=== PATIENT | female | born 1955 | race Two or more races ===

== ENCOUNTER 2023-04-14 16:10 | Inpatient (IN) | payer BC, MEDICARE, SELFPAY ==
[2023-04-14] VITALS (28 sets, daily range): BP systolic 117–150; BP diastolic 54–79; PULSE 63–85; RESP 15–27; TEMP 36.4; O2SAT 95–100
--- NOTE | ~2023-04-14 | CT_ITS ---
EXAMINATION: CT abdomen pelvis w con DATE: 04/14/2023 19:01 INDICATION: Pancreatitis TECHNIQUE: Computed tomography (CT) of the abdomen and pelvis was performed with 100 mL Omnipaque-350 intravenous contrast. Automated exposure control and iterative reconstruction technique were employe d. The dose-length product was 772.81 mGy-cm. COMPARISON: None FINDINGS: Mild dependent atelectasis in the bilateral lower lobes. Heart size is normal. Atherosclerotic burns ry artery calcific lesion. No pericardial or pleural effusion. Mild intra and extra hepatic biliary d uctal dilation which is within normal limits post cholecystectomy with surgical clips the gallbladder fossa. There does however appear to be possible filling defect within the distal common bile duct. L iver is otherwise unremarkable. Spleen, pancreas, left kidney and bilateral adrenal glands are normal . 1.7 cm exophytic lesion at the upper pole of the right kidney with slightly greater than simple flu id attenuation. There is prominent colonic diverticulosis with a sigmoid and descending colon predomi nance but without adjacent inflammatory change to suggest diverticulitis. Small bowel and appendix a re normal. Bladder, uterus and bilateral adnexa are unremarkable. No free intraperitoneal gas or flui d. No pathologically enlarged abdominal or pelvic lymphadenopathy. Mild lumbar spondylosis with sever e lower lumbar facet osteoarthritis. IMPRESSION: 1. Mild intra and extra hepatic biliary ductal dilation which is within normal limits post cholecyste ctomy but with suggestion of possible filling defect in the distal duct. Correlate with liver functio n tests and consider MRCP for further evaluation. 2. 1.7 cm indeterminate exophytic right renal lesion most likely proteinaceous/hemorrhagic cyst altho ugh could not absolutely exclude a solid neoplasm. Recommend further evaluation with pre and postcont rast MRI or CT, the former which could be obtained at the same time as the MRCP. Reviewed, dictated and finalized at location A. TY LIBRARY DIRECTOR IMPRESSION: 1. Mild intra and extra hepatic biliary ductal dilation which is within normal limits post cholecystectomy but with suggestion of possible filling defect in t he distal duct. Correlate with liver function tests and consider MRCP for furth er evaluation. 2. 1.7 cm indeterminate exophytic right renal lesion most likely proteinaceous/ hemorrhagic cyst although could not absolutely exclude a solid neoplasm. Recomm end further evaluation with pre and postcontrast MRI or CT, the former which co uld be obtained at the same time as the MRCP.
--- NOTE | ~2023-04-14 | XR_ITS ---
EXAMINATION: XR ERCP DATE: 04/15/2023 16:12 INDICATION: Gallstones TECHNIQUE: 5 fluoroscopic spot fluoroscopic images of the right upper quadrant were obtained during e ndoscopic retrograde cholangiopancreatography (ERCP) performed by Dr. Fabian. Radiologist was not pres ent for the imaging or procedure. The amount of fluoroscopy time used during this procedure was 2.7 m inutes. COMPARISON: None. FINDINGS: Images demonstrate endoscopic cannulation of the distal common bile duct with retrograde contrast inj ection filling the common bile duct and central intrahepatic biliary tree. Subsequent images demonstr ate a lucent likely balloon sweeping of the distal common bile duct. IMPRESSION: 1. Fluoroscopy utilized during ERCP with likely balloon sweeping for suspected stone seen on prior CT . Please refer to the ERCP procedure note for additional details. Reviewed, dictated and finalized at location A. TRICAL CHECKOUT MECHANIC IMPRESSION: 1. Fluoroscopy utilized during ERCP with likely balloon sweeping for suspected stone seen on prior CT. Please refer to the ERCP procedure note for additional details.
--- NOTE | ~2023-04-14 | CT_ITS ---
EXAMINATION: CT abdomen pelvis w con DATE: 04/19/2023 10:05 INDICATION: Pancreatitis. TECHNIQUE: Computed tomography (CT) of the abdomen and pelvis was performed with 100 cc Omnipaque 350 intravenous contrast. The dose-length product was 887.38 mGy-cm. Automated exposure control and iter ative reconstruction technique were employed. COMPARISON: CT dated 04/14/2023 FINDINGS: Interval development of small pleural effusions with dependent atelectasis. There is a 2.6 cm cyst along the right pericardium, likely pericardial cyst or duplication cyst. There is intrahepat ic biliary dilatation. Gallbladder is not definitely identified. There are are what appears to be sto sherri in the gallbladder fossa, possibly drop stones. There is a filling defect in the distal common bi le duct, suspicious for choledocholithiasis. Interval development of acute pancreatitis with moderate enlargement of the pancreas with surrounding fluid and inflammatory change. There is interval develo pment of ascites. Colonic diverticulosis without evidence for diverticulitis. Nonobstructive bowel ga s pattern. Fatty infiltration of the liver. Spleen is atrophic. The adrenal glands and kidneys are un remarkable. No free air. Stable indeterminate 1.7 cm exophytic right renal lesion. IMPRESSION: 1. Acute pancreatitis without evidence for abscess or pseudocyst formation. Possible choledocholithia sis. Possible drop stones in the gallbladder fossa. 2: New small pleural effusions with dependent atelectasis. 3: Stable indeterminate 1.7 cm exophytic right renal mass, most likely complicated cysts, although n eoplasm not excluded. Reviewed, dictated and finalized at location L. D EDUCATION DIRECTOR IMPRESSION: 1. Acute pancreatitis without evidence for abscess or pseudocyst formation. Pos sible choledocholithiasis. Possible drop stones in the gallbladder fossa. 2: New small pleural effusions with dependent atelectasis. 3: Stable indeterminate 1.7 cm exophytic right renal mass, most likely complic ated cysts, although neoplasm not excluded.
--- NOTE | ~2023-04-14 | XR_ITS ---
XR chest 2V DATE: 04/14/2023 17:40 INDICATION: Epigastric pain for 2 hours TECHNIQUE: PA and lateral chest COMPARISON: None FINDINGS: Multiple surgical clips, right upper quadrant, likely due to cholecystectomy. Normal heart size. No hilar or mediastinal enlargement. No pulmonary infiltrate or consolidation, pleural effusion or pulmonary vascular congestion or pneumo thorax. IMPRESSION: No active cardiac pulmonary disease Status post cholecystectomy Reviewed, dictated and finalized at location L. SPIRAL BINDER
--- NOTE | 2023-04-14 16:11 | ECG_ITS ---
Measurements Intervals [place] Rate: 70 P: 40 AL: 154 QRS: -18 QRSD: 105 T: 14 QT: 393 QTc: 426 Interpretive Statements SINUS RHYTHM DELAYED PRECORDIAL R/S TRANSITION BORDERLINE T WAVE ABNORMALITY- ANT/INF LEADS BASELINE ARTIFACT- I, II, III, AVR, V6 BORDERLINE ECG NO PREVIOUS ECG AVAILABLE FOR COMPARISON Electronically Signed On 04-14-2023 18:58:05 RESEARCH ANTHROPOLOGIST by Abhi Mackay D.O.
[2023-04-14 16:31] LABS: Basophils Absolute Auto 0.1 K/mm3 (0.0-0.1); Basophils Percent Auto 0.6 % (0.2-1.2); Eosinophils Absolute Auto 0.3 K/mm3 (0-0.3); Eosinophils Percent Auto 3.8 % (0-4.4); Immature Granulocyte Absolute 0.02 K/mm3 (0.00-0.031); Immature Granulocyte Percent A 0.2 % (0-0.5); Lymphocytes Absolute Auto 3.05 K/mm3 (0.9-3.2); Lymphocytes Percent Auto 34.5 % (18.3-44.2); Mean Corpuscular HGB Conc 31.7 g/dl (32-36); Mean Corpuscular Hemoglobin 28.3 pg (26-34); Mean Corpuscular Volume 89.3 fl (80-100); Mean Platelet Volume 9.1 fl (7.4-10.4); Monocytes Absolute Auto 0.9 K/mm3 (0.1-0.6); Monocytes Percent Auto 9.8 % (2.6-8.5); Neutrophils Absolute Auto 4.5 K/mm3 (1.3-6.7); Neutrophils Percent Auto 51.1 % (45.5-73.1); Platelet Count Result 321 k/mm3 (150-375); Red Blood Count 4.59 M/mm3 (4.2-5.4); Red Cell Distribution Width 14.5 % (11.5-14.5); White Blood Count 8.8 K/mm3 (4.5-10.0)
[2023-04-14 16:40] LABS: Alanine Aminotransferase 38 U/L (6-35); Albumin Level 4.7 g/dL (3.5-5.1); Alkaline Phosphatase 87 U/L (38-126); Anion Gap 14 mmol/L (8-16); Aspartate Amino Transferase 63 U/L (14-36); Bilirubin,Total 0.5 mg/dL (0.2-1.3); Blood Urea Nitrogen 15 mg/dL (7-17); Calcium 9.4 mg/dL (8.4-10.2); Carbon Dioxide 23 mmol/L (22-30); Chloride 99 mmol/L (98-107); Estimated CRCL calculation 54 ml/min; Estimated Glomerular Filt Rate > 60; Glucose 109 mg/dL (65-110); Lipase 1064 U/L (23-300); Sodium 136 mmol/L (137-145)
[2023-04-14 16:53] LABS: Troponin I < 0.012 ng/mL (0.000-0.034)
[2023-04-14 16:57] LABS: Prothrombin Time 13.6 Seconds (11.1-14.7)
[2023-04-14 16:58] LABS: Partial Thromboplastin Time 30.6 SECONDS (22.3-36.8)
[2023-04-14 18:35] LABS: Lactate Dehydrogenase 221 U/L (120-246)
[2023-04-14 19:43] LABS: Troponin I < 0.012 ng/mL (0.000-0.034)
[2023-04-14] MEDS: ONDANSETRON INJ 4 MG/2 ML VIAL IV PUSH (20:02)
[2023-04-14] MEDS: SODIUM CHLORIDE 0.9% IV 1,000 ML 999 ML IV CONT (20:03)
--- NOTE | 2023-04-14 20:06 | ED.CHESTPAIN ---
HPI - Chest Pain General Chief Complaint: Chest Pain Stated Complaint: Chest pain Time Seen by Provider: 04/14/23 17:59 History of Present Illness HPI narrative: Patient is a 67-year-old female who presents to the emergency department this evening complaining of mid epigastric pain radiating to her chest. Patient states that initially she felt chest pain which then replies to her midepigastric lesion. She admits to having a cholecystectomy over 20 years ago. Pain was initially sharp but patient states that it has somewhat improved since she 1st noticed it. Patient denies any shortness of breath, nausea, vomiting, dysuria, hematuria, constipation, diarrhea, melena, hematochezia, fevers or chills. Patient also denies any headaches, dizziness, lightheadedness, blurry visions, focal weakness, numbness and or tingling. There are no other modifying, alleviating, or precipitating factors at this time. Related Data Allergies Allergy/AdvReac Type Severity Reaction Status Date / Time No Known Allergies Allergy Verified 04/14/23 19:32 Review of Systems Review of Systems: All systems are reviewed and are negative unless stated otherwise in the HPI. Exam Narrative: General: Alert, awake, afebrile, in no acute distress. HEENT: PERRL, no rhinorrhea, no post nasal drip, oropharynx clear. Neck: Trachea midline, no JVD, no lymphadenopathy. Cardiovascular: Regular rate and rhythm, no murmurs, rubs or gallops, no peripheral edema. Respiratory: Clear to auscultation bilaterally, no tachypnea, no wheezing, no rhonchi, no rubs, no respiratory distress. Abdomen: Soft, tenderness palpation over the midepigastric region, nondistended, no rebound, no guarding, no peritoneal signs. Musculoskeletal: No joint swelling or deformity, normal muscle tone. Skin: No rashes or petechia, no signs of infection. Psychiatric: Alert and oriented, normal behavior and judgment for situation. Neurological: Alert and oriented to person, place, and time. Follows all commands. No focal deficits, speech is clear and fluent. Course Vital Signs Vital signs: Vital Signs Temperature 97.5 F L 04/14/23 16:17 Pulse Rate 75 04/14/23 16:17 Respiratory Rate 16 04/14/23 16:17 Blood Pressure 150/75 H 04/14/23 16:17 Pulse Oximetry 100 04/14/23 16:17 Oxygen Delivery Room Air 04/14/23 16:17 Temperature 97.5 F L 04/14/23 16:17 Pulse Rate 85 04/14/23 19:45 Respiratory Rate 19 04/14/23 19:45 Blood Pressure 131/63 04/14/23 18:50 Pulse Oximetry 100 04/14/23 19:45 Oxygen Delivery Room Air 04/14/23 17:59 MDM - Chest Pain MDM Narrative Medical decision making narrative: The patient was evaluated by myself in the emergency department. History is obtained from patient who is an independent historian and physical exam was performed. External medical records were reviewed at this time. IV was established and pertinent tests were ordered. Patient was administered 4 mg IV morphine for pain and 4 mg of IV Zofran for nausea. EKG was obtained which revealed sinus rhythm at a rate of 76 beats per minute. No ST changes, T wave inversions or evidence of acute ischemia. EKG was independently interpreted by me and is currently pending official cardiology read. Laboratory results obtained revealing an elevated lipase 3 times the upper limit of normal at 1064, elevated AST of 63, ALT of 38. At this time, CT abdomen and pelvis with IV contrast was obtained and revealed extra and intrahepatic biliary ductal dilation which is consistent with a post cholecystectomy state, however, there is a filling defect and recommendation for an MRCP. CT also revealed an incidental 1.7 right renal lesion recommending further evaluation with pre and postcontrast MRI or CT, the former which could be obtained at the same time as the MRCP. patient meets diagnostic criteria for acute pancreatitis given she has pain and an elevated lipase at this time she was started on IV
--- NOTE | 2023-04-14 20:09 | PC.NURSE ---
fluids and zofran administered but pt would like to wait on morphine until pain gets worse. no further orders at this time.
--- NOTE | 2023-04-14 20:09 | PM.IMHP ---
H&P: HPI History of Present Illness Date/Time: 04/14/23 20:09 Chief Complaint: Abdominal pain Narrative: This is a 67-year-old female with past medical history significant for type diabetes mellitus, status post remote cholecystectomy 20+ years ago. Patient presents to the emergency room due to right upper quadrant pain with radiation to the epigastrium 7/10 in intensity on a few hours of duration patient had been able to have her meals today she denies any nausea, vomiting, chills, rigors, diarrhea, constipation, dyspepsia, heartburn, no cough, no sputum production. Patient has been in her usual state of health up until this point. Preliminary workup was significant for a lipase over 1000 CT of abdomen and pelvis was reported as: XR chest 2V DATE: 04/14/2023 17:40 INDICATION: Epigastric pain for 2 hours? TECHNIQUE: PA and lateral chest? COMPARISON: None? FINDINGS: Multiple surgical clips, right upper quadrant, likely due to cholecystectomy. Normal heart size. No hilar or mediastinal enlargement. No pulmonary infiltrate or consolidation, pleural effusion or pulmonary vascular congestion or pneumothorax.? IMPRESSION: No active cardiac pulmonary disease Status post cholecystectomy? EXAMINATION: CT abdomen pelvis w con DATE: 04/14/2023 19:01 INDICATION: Pancreatitis TECHNIQUE: Computed tomography (CT) of the abdomen and pelvis was performed with 100 mL Omnipaque-350 intravenous contrast. Automated exposure control and iterative reconstruction technique were employed. The dose-length product was 772.81 mGy-cm. COMPARISON: None FINDINGS: Mild dependent atelectasis in the bilateral lower lobes. Heart size is normal. Atherosclerotic coronary artery calcific lesion. No pericardial or pleural effusion. Mild intra and extra hepatic biliary ductal dilation which is within normal limits post cholecystectomy with surgical clips the gallbladder fossa. There does however appear to be possible filling defect within the distal common bile duct. Liver is otherwise unremarkable. Spleen, pancreas, left kidney and bilateral adrenal glands are normal. 1.7 cm exophytic lesion at the upper pole of the right kidney with slightly greater than simple fluid attenuation. There is prominent colonic diverticulosis with a sigmoid and descending colon predominance but without adjacent inflammatory change to suggest diverticulitis.? Small bowel and appendix are normal. Bladder, uterus and bilateral adnexa are unremarkable. No free intraperitoneal gas or fluid. No pathologically enlarged abdominal or pelvic lymphadenopathy. Mild lumbar spondylosis with severe lower lumbar facet osteoarthritis. IMPRESSION: 1. Mild intra and extra hepatic biliary ductal dilation which is within normal limits post cholecystectomy but with suggestion of possible filling defect in the distal duct. Correlate with liver function tests and consider MRCP for further evaluation. 2. 1.7 cm indeterminate exophytic right renal lesion most likely proteinaceous/hemorrhagic cyst although could not absolutely exclude a solid neoplasm. Recommend further evaluation with pre and postcontrast MRI or CT, the former which could be obtained at the same time as the MRCP. Review of Systems Review of Systems: Right upper quadrant pain with radiation to the epigastric area Constitutional: Constitutional: Denies chills, Denies fever(s), Denies malaise and Denies night sweats Eyes: Eyes: Denies change in vision ENT: Denies dysphagia, Denies vertigo, Denies dizziness and Denies odynophagia Cardiovascular: Cardiovascular: Denies chest pain, Denies radiating jaw, neck or arm pain and Denies palpitations Respiratory: Respiratory: Denies cough, Denies excessive phlegm production and Denies dyspnea Gastrointestinal: Gastrointestinal: Reports abdominal pain, Denies melena, Denies hematochezia, Denies coffee ground emesis, Denies dyspepsia, Denies heartburn, Denies diarrhea, Denies nausea and Denies
[2023-04-14] MEDS: MORPHINE SULFATE (*CRX) 4 MG/ML INJ IV PUSH (20:47)
[2023-04-14] MEDS: SODIUM CHLORIDE 0.9% IV 1,000 ML 150 ML IV CONT (20:51)
--- NOTE | 2023-04-14 23:39 | ADMGEN ---
This patient, Gisela Bueno, was admitted to [facility] Surg Room 325-02. Patient/family oriented to hospital policies and general routines including ID bracelet, bed and alarms, visiting hours, pain management, procedures, bathroom and other care routines, personal items, smoking policy, room service/diet, and visiting hours. Information on how to activate the Rapid Response Team has been discussed. Patient/Family are encouraged to report perceived risks to care and to ask questions if they do not understand what they are told or what they should do.
[2023-04-15] VITALS (13 sets, daily range): BP systolic 98–149; BP diastolic 51–81; PULSE 47–66; RESP 13–25; TEMP 36.2–37.1; O2SAT 94–100
--- NOTE | 2023-04-15 06:59 | WPDGICN ---
Assessment and Plan Assessment and plan (1) Pancreatitis, acute: Code(s): K85.90 - Acute pancreatitis without necrosis or infection, unspecified Status: Acute (2) Common bile duct dilatation: Code(s): K83.8 - Other specified diseases of biliary tract Status: Acute Assessment and Plan: CT scan reveals dilated intra and extrahepatic ducts. This is not unusual for post cholecystectomy although there is also apparent filling defect in the distal common bile duct which would also explain her pancreatitis. (3) Transaminitis: Code(s): R74.01 - Elevation of levels of liver transaminase levels Status: Acute Assessment and Plan: AST is 68 ALT 38 Plan Will schedule for ERCP to be done today. I discussed with her the technique I sabino her a diagram. Showed her how stones conclude the pancreatic and bile duct. I discussed possible complications such as bleeding or perforation or the possible need for surgery to correct complication and also a risk of pancreatitis of about 3%. GI Consult Note Consult date/time: 04/15/23 06:59 HPI: Gisela Buneo is a 67 year old female who presents emergency room yesterday when she had developed acute severe sudden onset pain in the epigastric area yesterday afternoon. Persisted and was accompanied by nausea. It radiated across the upper abdomen and towards the the back on the right side. She denies having had fever chills. She has no prior history of liver disease or pancreatic disease but her lipase was found to be over 1000. Transaminases are slightly elevated. she had a cholecystectomy about 29 years ago with removal of many stones. CT scan was done which revealed: IMPRESSION: 1. Mild intra and extra hepatic biliary ductal dilation which is within normal limits post cholecystectomy but with suggestion of possible filling defect in the distal duct. Correlate with liver function tests and consider MRCP for further evaluation. 2. 1.7 cm indeterminate exophytic right renal lesion most likely proteinaceous/hemorrhagic cyst although could not absolutely exclude a solid neoplasm. Recommend further evaluation with pre and postcontrast MRI or CT, the former which could be obtained at the same time as the MRCP. Review of Systems Review of Systems: All systems reviewed & are unremarkable except as noted in HPI and below [facility] Social History Social History Smoking status: Never smoker Alcohol intake: current Drinks per week: 2 Substance use: never Lack of Transportation: No Lack of Food: Never True Current Housing: I Have Housing Concerned About Future Housing: No Difficulty Paying Gas/Electric Bills: No Difficulty Paying for Meds: No Currently Unemployed: No Education: Master's Degree or Higher Difficulty w/ Childcare or Family Care: No Spiritual care concerns: No Meds Home Medications and Allergies Home Medications Medication Instructions Recorded Confirmed Type ezetimibe 10 mg tablet 10 mg PO 1200 04/14/23 04/14/23 History hydroxychloroquine 200 mg tablet 200 mg PO DAILY 04/14/23 04/14/23 History metformin 500 mg tablet 500 mg PO BID 04/14/23 04/14/23 History rosuvastatin 5 mg tablet 5 mg PO HS 04/14/23 04/14/23 History Allergies Allergy/AdvReac Type Severity Reaction Status Date / Time No Known Allergies Allergy Verified 04/14/23 19:32 Vital Signs Vital Signs - 24 hr 04/14/23 16:17 04/14/23 17:59 04/14/23 17:59 Temperature 36.4 C L Pulse Rate 75 66 68 Respiratory Rate 16 17 Blood Pressure 150/75 H 142/66 H Pulse Oximetry 100 100 Oxygen Delivery Room Air Room Air 04/14/23 17:59 04/14/23 17:57 04/14/23 18:00 Temperature Pulse Rate 69 Respiratory Rate 18 Blood Pressure Pulse Oximetry 100 99 100 Oxygen Delivery Room Air 04/14/23 18:01 04/14/23 18:02 04/14/23 18:15 Temperature Pulse Rate 65 70 63 Respiratory
[2023-04-15] MEDS: HYDROXYCHLOROQUINE SULFATE 200 MG TABLET PO (08:52)
--- NOTE | 2023-04-15 09:07 | PM.IMPN ---
Subjective Date/time seen: 04/15/23 09:07 Objective Data Vital Signs Vital Signs: Vital Signs - 24 hr 04/14/23 16:17 04/14/23 17:59 04/14/23 17:59 Temperature 97.5 F L Pulse Rate 75 66 68 Respiratory Rate 16 17 Blood Pressure 150/75 H 142/66 H Pulse Oximetry 100 100 Oxygen Delivery Room Air Room Air 04/14/23 17:59 04/14/23 17:57 04/14/23 18:00 Temperature Pulse Rate 69 Respiratory Rate 18 Blood Pressure Pulse Oximetry 100 99 100 Oxygen Delivery Room Air 04/14/23 18:01 04/14/23 18:02 04/14/23 18:15 Temperature Pulse Rate 65 70 63 Respiratory Rate 19 27 H 18 Blood Pressure 142/66 H Pulse Oximetry 100 100 100 Oxygen Delivery 04/14/23 18:17 04/14/23 18:30 04/14/23 18:31 Temperature Pulse Rate 65 69 72 Respiratory Rate 19 17 15 Blood Pressure 128/65 130/61 Pulse Oximetry 98 100 99 Oxygen Delivery 04/14/23 18:45 04/14/23 18:50 04/14/23 19:02 Temperature Pulse Rate 71 66 72 Respiratory Rate 18 20 Blood Pressure 131/63 Pulse Oximetry 98 99 Oxygen Delivery 04/14/23 19:15 04/14/23 19:30 04/14/23 19:45 Temperature Pulse Rate 71 71 85 Respiratory Rate 21 H 21 H 19 Blood Pressure Pulse Oximetry 98 100 Oxygen Delivery 04/14/23 20:03 04/14/23 20:04 04/14/23 20:15 Temperature Pulse Rate 73 80 77 Respiratory Rate 20 18 17 Blood Pressure 150/79 H Pulse Oximetry 99 100 100 Oxygen Delivery 04/14/23 20:17 04/14/23 20:30 04/14/23 20:31 Temperature Pulse Rate 84 72 73 Respiratory Rate 21 H 20 25 H Blood Pressure 130/54 L 136/62 Pulse Oximetry 100 100 99 Oxygen Delivery 04/14/23 20:45 04/14/23 20:46 04/14/23 21:01 Temperature Pulse Rate 74 72 Respiratory Rate 18 18 Blood Pressure 137/58 L Pulse Oximetry 100 96 Oxygen Delivery 04/14/23 21:03 04/14/23 21:15 04/14/23 21:16 Temperature Pulse Rate 76 70 69 Respiratory Rate 17 19 18 Blood Pressure 132/65 117/57 L Pulse Oximetry 99 95 95 Oxygen Delivery 04/15/23 00:00 04/15/23 05:54 Temperature 98.1 F 97.6 F Pulse Rate 66 59 L Respiratory Rate 18 18 Blood Pressure 98/60 L 109/51 L Pulse Oximetry 99 94 Oxygen Delivery Intake/Output Intake/Output: Intake & Output 04/12/23 04/13/23 04/14/23 04/15/23 23:59 23:59 23:59 23:59 Intake Total 1000 100 Balance 1000 100 Meds/Results Medications: Active Medications Generic Name Dose Route Start Last Admin Trade Name Freq PRN Reason Stop Dose Admin Acetaminophen 1,000 mg 04/15/23 00:25 Acetaminophen 500 Mg Tablet PO Q6H PRN Mild Pain (1-3) or Fever Hydroxychloroquine Sulfate 200 mg 04/15/23 08:00 04/15/23 08:52 Hydroxychloroquine Sulfate 200 Mg Tablet PO 200 mg DAILY@0800 [facility] Administration Morphine Sulfate 4 mg 04/15/23 00:25 Morphine Sulfate (*Crx) 4 Mg/Ml Inj IV PUSH Q4H PRN Pain Rated 7-10 Ondansetron HCl 4 mg 04/15/23 00:25 Ondansetron Inj 4 Mg/2 Ml Vial IV PUSH Q6H PRN Nausea And Vomiting Rosuvastatin Calcium 5 mg 04/15/23 00:35 04/15/23 04:36 Rosuvastatin 5 Mg Tablet PO Not Given HS [facility] Radiology Results: ITS Impressions Chest X-Ray 04/14/23 17:42 IMPRESSION: No active cardiac pulmonary disease Status post cholecystectomy Abdomen/Pelvis CT 04/14/23 19:04 IMPRESSION: 1. Mild intra and extra hepatic biliary ductal dilation which is within normal limits post cholecystectomy but with suggestion of possible filling defect in the distal duct. Correlate with liver function tests and consider MRCP for further evaluation. 2. 1.7 cm indeterminate exophytic right renal lesion most likely proteinaceous/hemorrhagic cyst although could not absolutely exclude a solid neoplasm. Recommend further evaluation with pre and postcontrast MRI or CT, the former which could be obtained at the same time as the MRCP. Labs Labs: Laboratory Results - last 24 hr 04/14/23 04/14/23
--- NOTE | 2023-04-15 09:13 | PM.IMPN ---
Progress Note: A&P Assessment and Plan (1) Pancreatitis, acute: Code(s): K85.90 - Acute pancreatitis without necrosis or infection, unspecified Status: Acute Assessment and Plan: Admit to regular medical floor NPO IV fluids GI consult Supportive Continue to monitor 04/15: Plan for ERCP today. Checked lipid panel, normal findings. Pain is improved. Discussed possible etiologies, reason for GI referral. Patient verbalizes understanding. Will await GI recs and hopefully resume a bland diet and advance as tolerated. (2) T2DM (type 2 diabetes mellitus): Code(s): E11.9 - Type 2 diabetes mellitus without complications Status: Acute Assessment and Plan: Holding Metformin ISS as needed 04/15: Stable glucose on labs. Plan Postprocedural plan for bland/low fat diet pending findings and GI recommendations. Time Spent With Patient Time: >30 minutes in border guard, documentation, and physical examination and patient counseling. Subjective Date/time seen: 04/15/23 09:13 Interval history: This is a 67-year-old female with past medical history significant for type diabetes mellitus, status post remote cholecystectomy 20+ years ago.? Patient presents to the emergency room due to right upper quadrant pain with radiation to the epigastrium 7/10 in intensity on a few hours of duration patient had been able to have her meals today she denies any nausea, vomiting, chills, rigors, diarrhea, constipation, dyspepsia, heartburn, no cough, no sputum production.? Patient has been in her usual state of health up until this point.? Preliminary workup was significant for a lipase? over 1000 04/15: Patient has less abd. pain this am, more in the RUQ and less midline compared to yesterday. She has been npo this morning in prep for an ERCP. She has not had similar symptoms in the recent past. She notes recently starting metformin. Review of Systems Review of Systems: Right upper quadrant pain with radiation to the epigastric area Constitutional: Constitutional: Denies chills, Denies fatigue, Denies fever(s), Denies malaise and Denies night sweats ENT: Denies dizziness Cardiovascular: Cardiovascular: Denies chest pain and Denies palpitations Respiratory: Respiratory: Denies cough Gastrointestinal: Gastrointestinal: Reports abdominal pain and Denies dyspepsia Objective Data Vital Signs Vital Signs: Vital Signs - 24 hr 04/14/23 16:17 04/14/23 17:59 04/14/23 17:59 Temperature 97.5 F L Pulse Rate 75 66 68 Respiratory Rate 16 17 Blood Pressure 150/75 H 142/66 H Pulse Oximetry 100 100 Oxygen Delivery Room Air Room Air 04/14/23 17:59 04/14/23 17:57 04/14/23 18:00 Temperature Pulse Rate 69 Respiratory Rate 18 Blood Pressure Pulse Oximetry 100 99 100 Oxygen Delivery Room Air 04/14/23 18:01 04/14/23 18:02 04/14/23 18:15 Temperature Pulse Rate 65 70 63 Respiratory Rate 19 27 H 18 Blood Pressure 142/66 H Pulse Oximetry 100 100 100 Oxygen Delivery 04/14/23 18:17 04/14/23 18:30 04/14/23 18:31 Temperature Pulse Rate 65 69 72 Respiratory Rate 19 17 15 Blood Pressure 128/65 130/61 Pulse Oximetry 98 100 99 Oxygen Delivery 04/14/23 18:45 04/14/23 18:50 04/14/23 19:02 Temperature Pulse Rate 71 66 72 Respiratory Rate 18 20 Blood Pressure 131/63 Pulse Oximetry 98 99 Oxygen Delivery 04/14/23 19:15 04/14/23 19:30 04/14/23 19:45 Temperature Pulse Rate 71 71 85 Respiratory Rate 21 H 21 H 19 Blood Pressure Pulse Oximetry 98 100 Oxygen Delivery 04/14/23 20:03 04/14/23 20:04 04/14/23 20:15 Temperature Pulse Rate 73 80 77 Respiratory Rate 20 18 17 Blood Pressure 150/79 H Pulse Oximetry 99 100 100 Oxygen Delivery 04/14/23 20:17 04/14/23 20:30 04/14/23 20:31 Temperature Pulse Rate 84 72 73 Respiratory Rate 21 H 20 25 H Blood Pressure 130/54 L 136/62 Pulse Oximetry 100 100 99 Oxygen Deliver
[2023-04-15 09:35] LABS: Cholesterol 158 mg/dL (0-200); HDL Direct 90 mg/dL; Triglycerides 62 mg/dL (<150)
[2023-04-15 09:46] LABS: LDL Cholesterol Direct 41 mg/dL
[2023-04-15] MEDS: LACTATED RINGERS 1,000 ML 150 ML IV CONT ×2 (13:54→16:00)
[2023-04-15 14:11] LABS: Glucose Point of Care 87 mg/dl (65-105)
--- NOTE | 2023-04-15 14:39 | WPDANESEPPF ---
Anes - Initial Pre Proc Eval Procedure: Operation Date: 04/15/23 15:30 Proposed Procedures p Endoscopic Retro Cholangiopancreatogram - Ricky Fabian MD Date/Time: 04/15/23 14:39 Surgeon: Eliazar Graves MD Pre Op Diagnosis: Chest pain Patient Data Age: 67 Gender: F Height: 1.63 m Weight: 77 kg Last Vital Signs Temp 36.9 C 04/15/23 13:43 Pulse 58 L 04/15/23 13:43 Resp 18 04/15/23 13:43 BP 119/58 L 04/15/23 13:43 Pulse Ox 96 04/15/23 13:43 O2 Del Method Room Air 04/15/23 13:43 Allergies Allergy/AdvReac Type Severity Reaction Status Date / Time No Known Allergies Allergy Verified 04/15/23 13:40 Home Medications Medication Instructions Recorded Confirmed Type ezetimibe 10 mg tablet 10 mg PO 1200 04/14/23 04/14/23 History hydroxychloroquine 200 mg tablet 200 mg PO DAILY 04/14/23 04/14/23 History metformin 500 mg tablet 500 mg PO BID 04/14/23 04/14/23 History rosuvastatin 5 mg tablet 5 mg PO HS 04/14/23 04/14/23 History Laboratory Tests 04/14/23 04/14/23 04/15/23 16:22 19:15 09:13 WBC 8.8 K/mm3 (4.5-10.0) RBC 4.59 M/mm3 (4.2-5.4) Hgb 13.0 g/dL (12.0-15.0) Hct 41.0 % (37.0-47.0) MCV 89.3 fl (80-100) MCH 28.3 pg (26-34) MCHC 31.7 L g/dl (32-36) RDW 14.5 % (11.5-14.5) Plt Count 321 k/mm3 (150-375) MPV 9.1 fl (7.4-10.4) Immature Gran % (Auto) 0.2 % (0-0.5) Neut % (Auto) 51.1 % (45.5-73.1) Lymph % (Auto) 34.5 % (18.3-44.2) [place] % (Auto) 9.8 H % (2.6-8.5) Eos % (Auto) 3.8 % (0-4.4) Baso % (Auto) 0.6 % (0.2-1.2) Lymph # (Auto) 3.05 K/mm3 (0.9-3.2) [place] # (Auto) 0.9 H K/mm3 (0.1-0.6) Eos # (Auto) 0.3 K/mm3 (0-0.3) Baso # (Auto) 0.1 K/mm3 (0.0-0.1) Abs Immat Gran (auto) 0.02 K/mm3 (0.00-0.031) Absolute Neuts (auto) 4.5 K/mm3 (1.3-6.7) Absolute Nucleated RBC 0.0 K/mm3 (0.0-0.012) Nucleated RBC % 0.0 % (0.0-0.2) PT 13.6 Seconds (11.1-14.7) INR 1.0 APTT 30.6 SECONDS (22.3-36.8) Sodium 136 L mmol/L (137-145) Potassium 4.0 mmol/L (3.4-5.0) Chloride 99 mmol/L (98-107) Carbon Dioxide 23 mmol/L (22-30) Anion Gap 14 mmol/L (8-16) BUN 15 mg/dL (7-17) Creatinine 0.90 mg/dL (0.7-1.0) Estim Creat Clear Calc 54 ml/min Estimated GFR > 60 (59 - ) Glucose 109 mg/dL (65-110) POC Capillary Glucose Calcium 9.4 mg/dL (8.4-10.2) Total Bilirubin 0.5 mg/dL (0.2-1.3) AST 63 H U/L (14-36) ALT 38 H U/L (6-35) Alkaline Phosphatase 87 U/L (38-126) Lactate Dehydrogenase 221 U/L (120-246) Troponin I < 0.012 ng/mL < 0.012 ng/mL (0.000-0.034) (0.000-0.034) Total Protein 8.0 g/dL (6.3-8.2) Albumin 4.7 g/dL (3.5-5.1) Triglycerides 62 mg/dL (<150) Cholesterol 158 mg/dL (0-200) LDL Cholesterol Direct 41 mg/dL HDL Direct 90 mg/dL Lipase 1064 H U/L (23-300) 04/15/23 13:53 WBC RBC Hgb Hct MCV MCH MCHC RDW Plt Count MPV Immature Gran % (Auto) Neut % (Auto) Lymph % (Auto) [place] % (Auto) Eos % (Auto) Baso % (Auto) Lymph # (Auto) [place] # (Auto) Eos # (Auto) Baso # (Auto) Abs Immat Gran (auto) Absolute Neuts (auto) Absolute Nucleated RBC Nucleated RBC % PT INR APTT Sodium Potassium Chloride Carbon Dioxide Anion Gap BUN Creatinine Estim Creat Clear Calc Estimated GFR Glu
[2023-04-15] MEDS: INDOMETHACIN 50 MG SUPP.RECT RECTAL (15:11)
[2023-04-15] MEDS: ONDANSETRON INJ 4 MG/2 ML VIAL IV PUSH ×2 (16:24→19:48)
[2023-04-15 16:38] LABS: Glucose Point of Care 170 mg/dl (65-105)
--- NOTE | 2023-04-15 16:38 | SUR.PHASEII ---
Pt resting quietly. C/O nausea. Med given per Dr. Haney order. VSS. Lungs clear. Denies pain to abdomen, scratchy throat. Explained to pt that is to be expected r/t scope and intubation. Stated understanding.
[2023-04-15] MEDS: MORPHINE SULFATE (*CRX) 4 MG/ML INJ IV PUSH (19:48)
[2023-04-15] MEDS: ROSUVASTATIN 5 MG TABLET PO (19:49)
[2023-04-15] MEDS: ACETAMINOPHEN 500 MG TABLET 1000 MG PO (22:40)
[2023-04-16] MEDS: MORPHINE SULFATE (*CRX) 4 MG/ML INJ IV PUSH ×3 (00:24→08:42)
[2023-04-16 05:53] VITALS: BP 110/60; PULSE 50; RESP 13; TEMP 36.9; O2SAT 95
[2023-04-16] MEDS: ACETAMINOPHEN 500 MG TABLET 1000 MG PO (06:37)
[2023-04-16] MEDS: ONDANSETRON INJ 4 MG/2 ML VIAL IV PUSH (06:39)
[2023-04-16 07:03] LABS: Hematocrit 38.6 % (37.0-47.0); Hemoglobin 12.3 g/dL (12.0-15.0); Mean Corpuscular HGB Conc 31.9 g/dl (32-36); Mean Corpuscular Hemoglobin 28.8 pg (26-34); Mean Corpuscular Volume 90.4 fl (80-100); Mean Platelet Volume 9.3 fl (7.4-10.4); Platelet Count Result 275 k/mm3 (150-375); Red Blood Count 4.27 M/mm3 (4.2-5.4); Red Cell Distribution Width 14.7 % (11.5-14.5); White Blood Count 11.5 K/mm3 (4.5-10.0)
[2023-04-16 07:20] LABS: Alanine Aminotransferase 89 U/L (6-35); Albumin Level 3.6 g/dL (3.5-5.1); Alkaline Phosphatase 69 U/L (38-126); Anion Gap 8 mmol/L (8-16); Aspartate Amino Transferase 50 U/L (14-36); Bilirubin,Total 0.5 mg/dL (0.2-1.3); Blood Urea Nitrogen 9 mg/dL (7-17); Calcium 8.6 mg/dL (8.4-10.2); Carbon Dioxide 22 mmol/L (22-30); Chloride 104 mmol/L (98-107); Estimated CRCL calculation 68 ml/min; Estimated Glomerular Filt Rate > 60; Glucose 122 mg/dL (65-110); Sodium 134 mmol/L (137-145)
--- NOTE | 2023-04-16 08:00 | PM.IMPN ---
Progress Note: A&P Assessment and Plan (1) Pancreatitis, acute: Code(s): K85.90 - Acute pancreatitis without necrosis or infection, unspecified Status: Acute Assessment and Plan: Admit to regular medical floor NPO IV fluids GI consult Supportive Continue to monitor 04/15: Plan for ERCP today. Checked lipid panel, normal findings. Pain is improved. Discussed possible etiologies, reason for GI referral. Patient verbalizes understanding. Will await GI recs and hopefully resume a bland diet and advance as tolerated. 04/16: ERCP yesterday with stone extraction. Now with increasing pain. Lipase 21,629. Will place back on NPO with ice chips. IVF LR at 150 ml per hour. Her morphine and zofran are no longer helping with her symptoms. Dilaudid and compazine added. (2) T2DM (type 2 diabetes mellitus): Code(s): E11.9 - Type 2 diabetes mellitus without complications Status: Acute Assessment and Plan: Holding Metformin ISS as needed 04/15: Stable glucose on labs. 04/16: Stable. Plan Feeding: NPO with ice chips Analgesia:? Tylenol, dilaudid 0.5-1 mg q 3hours as needed for pain Thromboembolic prophylaxis:? Lovenox Ulcer prophylaxis:? Protonix. Glycemic control: Monitor glucose on labs for now. Bowel regimen: Suppository per pt request for gas. Lines:? PIV Antibiotics:? None Disposition: Home when clinically improved. Subjective Date/time seen: 04/16/23 08:00 Interval history: HPI obtained from the chart, This is a 67-year-old female with past medical history significant for type diabetes mellitus, status post remote cholecystectomy 20+ years ago.? Patient presents to the emergency room due to right upper quadrant pain with radiation to the epigastrium 7/10 in intensity on a few hours of duration patient had been able to have her meals today she denies any nausea, vomiting, chills, rigors, diarrhea, constipation, dyspepsia, heartburn, no cough, no sputum production.? Patient has been in her usual state of health up until this point.? Preliminary workup was significant for a lipase? over 1000. 04/15: Patient has less abd. pain this am, more in the RUQ and less midline compared to yesterday.? She has been npo this morning in prep for an ERCP.? She has not had similar symptoms in the recent past. She notes recently starting metformin.? 04/16: Patient says she does not feel well today. Reports the same epigastric, RUQ pain with nausea present. She trialed a clear liquid diet this morning but was unable to tolerate much due to pain. She also feels bloated. Review of Systems Review of Systems: All systems reviewed & are unremarkable except as noted in HPI and below Exam Narrative: General: appears uncomfortable, well developed, well nourished, appears stated age. HEENT: normocephalic, atraumatic. Mucous membranes moist. EOMI, PERRLA, bilateral sclera anicteric, no conjunctival injection. Neck supple without JVD, lymphadenopathy, or bruit. Respiratory: clear to auscultation bilaterally. No rales/rhonic/wheezes. Cardiovascular: Regular rate and rhythm, normal S1-S2 upon auscultation. No murmurs, rubs, or clicks. PMI is nondisplaced, capillary re-fill less than 3 second. Abdomen: Soft, round, no pulsatile masses, non-distended and moderately tender to RUQ and mid-epigastrium. No rebound, no guarding. No CVA tenderness, no hepatosplenomegaly.? Bowel sounds hypoactive to all four quadrants. No high pitch or tinkling sounds, resonant to percussion. Extremities: No cyanosis, clubbing, or edema present. Pulses are palpable 2/2.? Active ROM to all four extremities. Neuro: Alert and orientated x 4. PERRLA. Cranial nerves 2-12 intact without focal deficit. Skin: Warm, dry, and intact, without rash, erythema, or lesion. Lines: PIV Incisions:NA Psych: pleasant, cooperative, normal speech, normal affect, no hallucinations, no dysarthria Objective Data Vital Signs Vital Signs: Vital Signs - 24
[2023-04-16] MEDS: HYDROXYCHLOROQUINE SULFATE 200 MG TABLET PO (08:34)
--- NOTE | 2023-04-16 10:07 | WPDGIPROGNO ---
Progress Note: A&P Assessment and Plan (1) Pancreatitis, acute: Code(s): K85.90 - Acute pancreatitis without necrosis or infection, unspecified Status: Acute Assessment and Plan: Patient with acute pancreatitis. Mild elevation of transaminases noted. Lipase over 1000 on presentation. Not repeated today yet. Patient appears to have some evidence of ongoing pancreatitis with her nausea and epigastric pain. I would suggest going slow with diet. We will keep her NPO for now. Continue pain control. Because she has had no bowel movements a dulcolax suppository will be utilized. Continue to monitor lipase daily. Supportive care for now. Her pancreatitis could be from passage of a small gallstone as evidence by to that retrieved time of ERCP versus idiopathic pancreatitis. He gives no significant drinking history. Subjective Date/time seen: 04/16/23 10:07 Interval history: Patient alert this morning. Still uncomfortable. She states she is nauseated. Has had no recent bowel movement. Not hungry. Not able to tolerate liquids which intensifies her pain. She is status post ERCP and removal very small gallstone from the common duct yesterday. Previous cholecystectomy noted. She denies alcohol intake. Review of Systems Review of Systems: Review of systems noncontributory. Exam Narrative: Physical exam reveals patient be alert. Vital signs stable. HEENT exam reveals no icterus. Lungs are clear. Heart without murmur. Abdomen is obese. Bowel sounds are present abdomen is soft flat. Mild tenderness in the upper abdomen. Objective Data Vital Signs Vital Signs: Vital Signs - 24 hr 04/15/23 13:43 04/15/23 16:07 04/15/23 16:37 Temperature 98.5 F 97.1 F L Pulse Rate 58 L 55 L 48 L Respiratory Rate 18 14 14 Blood Pressure 119/58 L 145/79 H 143/78 H Pulse Oximetry 96 100 100 Oxygen Delivery Room Air Simple Face Mask Room Air Oxygen Flow Rate 10 04/15/23 16:17 04/15/23 16:27 04/15/23 16:47 Temperature Pulse Rate 50 L 50 L 47 L Respiratory Rate 19 14 15 Blood Pressure 144/71 H 142/74 H 149/81 H Pulse Oximetry 100 100 98 Oxygen Delivery Simple Face Mask Room Air Room Air Oxygen Flow Rate 10 04/15/23 16:57 04/15/23 17:07 11/17/23 21:19 Temperature 98.7 F Pulse Rate 49 L 47 L 53 L Respiratory Rate 25 H 16 13 Blood Pressure 131/68 133/69 116/67 Pulse Oximetry 97 96 94 Oxygen Delivery Room Air Room Air Oxygen Flow Rate 04/15/23 23:04 04/16/23 05:53 Temperature 98.5 F Pulse Rate 50 L Respiratory Rate 13 Blood Pressure 110/60 Pulse Oximetry 94 95 Oxygen Delivery Room Air Oxygen Flow Rate Intake/Output Intake/Output: Intake & Output 04/13/23 04/14/23 04/15/23 04/16/23 23:59 23:59 23:59 23:59 Intake Total 1000 878 500 Balance 1000 878 500 Meds/Results Medications: Active Medications Generic Name Dose Route Start Last Admin Trade Name Freq PRN Reason Stop Dose Admin Acetaminophen 1,000 mg 04/15/23 00:25 04/16/23 06:37 Acetaminophen 500 Mg Tablet PO 1,000 mg Q6H PRN Administration Mild Pain (1-3) or Fever Bisacodyl 10 mg 04/17/23 09:00 Bisacodyl 10 Mg Suppository [facility] Hydroxychloroquine Sulfate 200 mg 04/15/23 08:00 04/16/23 08:34 Hydroxychloroquine Sulfate 200 Mg Tablet PO 200 mg DAILY@0800 [facility] Administration Morphine Sulfate 4 mg 04/15/23 00:25 04/16/23 08:42 Morphine Sulfate (*Crx) 4 Mg/Ml Inj IV PUSH 4 mg Q4H PRN Administration Pain Rated 7-10 Ondansetron HCl 4 mg 04/15/23 00:25 04/16/23 06:39 Ondansetron Inj 4 Mg/2 Ml Vial IV PUSH 4 mg Q6H PRN Administration Nausea And Vomiting Rosuvastatin Calcium 5 mg 04/15/23 00:35 04/15/23 19:49 Rosuvastatin 5 Mg Tablet PO 5 mg [facility] Administration Radiology Results: ITS Impressions Chest X-Ray 04/14/23 17:42 IMPRESSION: No active cardiac pulmonary disease Status post cholecyste
[2023-04-16] MEDS: LACTATED RINGERS 1,000 ML 150 ML IV CONT ×3 (10:53→20:20)
[2023-04-16] MEDS: BISACODYL 10 MG SUPPOSITORY RECTAL (10:54)
[2023-04-16] MEDS: HYDROmorphone HCL INJ (*CRX) 1 MG/ML SYR IV PUSH ×3 (13:48→21:01)
[2023-04-16 14:00] VITALS: BP 128/51; PULSE 58; RESP 14; TEMP 36.4; O2SAT 95
[2023-04-16] MEDS: PROCHLORPERAZINE EDISYLATE 10 MG/2 ML VIAL IV PUSH ×2 (14:19→20:20)
--- NOTE | 2023-04-16 19:57 | PC.NURSE ---
Pt participates and contributes in plan of care. Pt reports pain throughout the day. Pt was placed NPO with Ice chips today. Pt compliant with care. Pt has been up independently today. Pt at bedside. Pt was monitored for any changes in status.
[2023-04-16 20:00] VITALS: PULSE 85; RESP 20; O2SAT 93
[2023-04-16] MEDS: ROSUVASTATIN 5 MG TABLET PO (20:20)
[2023-04-16 21:37] VITALS: BP 104/65; PULSE 85; RESP 20; TEMP 36.4; O2SAT 93
[2023-04-17] MEDS: HYDROmorphone HCL INJ (*CRX) 1 MG/ML SYR IV PUSH ×3 (00:38→12:20)
[2023-04-17 06:00] VITALS: BP 117/55; PULSE 81; RESP 16; TEMP 37; O2SAT 91
[2023-04-17] MEDS: LACTATED RINGERS 1,000 ML 150 ML IV CONT ×3 (07:57→20:28)
[2023-04-17] MEDS: HYDROXYCHLOROQUINE SULFATE 200 MG TABLET PO (07:58)
[2023-04-17] MEDS: PANTOPRAZOLE SODIUM IV 40 MG VIAL IV PUSH (07:59)
[2023-04-17] MEDS: BISACODYL 10 MG SUPPOSITORY RECTAL (08:02)
--- NOTE | 2023-04-17 08:19 | PM.IMPN ---
Progress Note: A&P Assessment and Plan (1) Pancreatitis, acute: Code(s): K85.90 - Acute pancreatitis without necrosis or infection, unspecified Status: Acute Assessment and Plan: Admit to regular medical floor NPO IV fluids GI consult Supportive Continue to monitor 04/15: Plan for ERCP today. Checked lipid panel, normal findings. Pain is improved. Discussed possible etiologies, reason for GI referral. Patient verbalizes understanding. Will await GI recs and hopefully resume a bland diet and advance as tolerated. 04/16: ERCP yesterday with stone extraction. Now with increasing pain. Lipase 21,629. Will place back on NPO with ice chips. IVF LR at 150 ml per hour. Her morphine and zofran are no longer helping with her symptoms. Dilaudid and compazine added. 04/17: Continue with supportive care of IVF, NPO, and pain meds. Can trial clears when she is feeling ready. (2) T2DM (type 2 diabetes mellitus): Code(s): E11.9 - Type 2 diabetes mellitus without complications Status: Acute Assessment and Plan: Holding Metformin ISS as needed 04/15: Stable glucose on labs. 04/16: Stable. Plan Feeding: NPO with ice chips Analgesia:? Tylenol, dilaudid 0.5-1 mg q 3hours as needed for pain Thromboembolic prophylaxis:? Lovenox Ulcer prophylaxis:? Protonix. Glycemic control: Monitor glucose on labs for now. Bowel regimen: Suppository per pt request for gas. Lines:? PIV Antibiotics:? None Disposition: Home when clinically improved. Subjective Date/time seen: 04/17/23 08:19 Interval history: HPI obtained from the chart, This is a 67-year-old female with past medical history significant for type diabetes mellitus, status post remote cholecystectomy 20+ years ago.? Patient presents to the emergency room due to right upper quadrant pain with radiation to the epigastrium 7/10 in intensity on a few hours of duration patient had been able to have her meals today she denies any nausea, vomiting, chills, rigors, diarrhea, constipation, dyspepsia, heartburn, no cough, no sputum production.? Patient has been in her usual state of health up until this point.? Preliminary workup was significant for a lipase? over 1000. 04/15: Patient has less abd. pain this am, more in the RUQ and less midline compared to yesterday.? She has been npo this morning in prep for an ERCP.? She has not had similar symptoms in the recent past. She notes recently starting metformin.? 04/16: Patient says she does not feel well today. Reports the same epigastric, RUQ pain with nausea present. She trialed a clear liquid diet this morning but was unable to tolerate much due to pain. She also feels bloated. 04/17: Doing better today. Her pain is slowly improving and she is requiring less pain medications. She is still NPO. I offered to let her trial some clears tonight but she wants to wait until tomorrow. She is passing gas and has had two small bowel movements. Review of Systems Review of Systems: All systems reviewed & are unremarkable except as noted in HPI and below Exam Narrative: General: appears uncomfortable, well developed, well nourished, appears stated age. HEENT: normocephalic, atraumatic. Mucous membranes moist. EOMI, PERRLA, bilateral sclera anicteric, no conjunctival injection. Neck supple without JVD, lymphadenopathy, or bruit. Respiratory: clear to auscultation bilaterally. No rales/rhonic/wheezes. Cardiovascular: Regular rate and rhythm, normal S1-S2 upon auscultation. No murmurs, rubs, or clicks. PMI is nondisplaced, capillary re-fill less than 3 second. Abdomen: Soft, round, no pulsatile masses, non-distended and moderately tender to RUQ and mid-epigastrium. No rebound, no guarding. No CVA tenderness, no hepatosplenomegaly.? Bowel sounds hypoactive to all four quadrants. No high pitch or tinkling sounds, resonant to percussion. Extremities: No cyanosis, clubbing, or edema present. Pulses are palpable 2/2.? Ac
[2023-04-17 08:20] LABS: Hematocrit 39.5 % (37.0-47.0); Hemoglobin 12.4 g/dL (12.0-15.0); Mean Corpuscular HGB Conc 31.4 g/dl (32-36); Mean Corpuscular Hemoglobin 28.8 pg (26-34); Mean Corpuscular Volume 91.6 fl (80-100); Mean Platelet Volume 9.6 fl (7.4-10.4); Platelet Count Result 298 k/mm3 (150-375); Red Blood Count 4.31 M/mm3 (4.2-5.4); Red Cell Distribution Width 14.7 % (11.5-14.5); White Blood Count 19.2 K/mm3 (4.5-10.0)
[2023-04-17 08:27] LABS: Alanine Aminotransferase 56 U/L (6-35); Albumin Level 3.3 g/dL (3.5-5.1); Alkaline Phosphatase 59 U/L (38-126); Anion Gap 7 mmol/L (8-16); Aspartate Amino Transferase 36 U/L (14-36); Bilirubin,Total 0.5 mg/dL (0.2-1.3); Blood Urea Nitrogen 8 mg/dL (7-17); Calcium 8.1 mg/dL (8.4-10.2); Carbon Dioxide 25 mmol/L (22-30); Chloride 102 mmol/L (98-107); Estimated CRCL calculation 93 ml/min; Estimated Glomerular Filt Rate > 60; Glucose 95 mg/dL (65-110); Magnesium 1.9 mg/dL (1.6-2.3); Sodium 134 mmol/L (137-145)
[2023-04-17 08:54] LABS: Lipase 4927 U/L (23-300)
[2023-04-17 09:52] LABS: Band Neutrophils Percent 20 % (0-6); Burr Cells 2+ (NORMAL); Monocytes Absolute Manual 0.76 K/mm3 (0.1-0.90); Monocytes Percent Manual 4 % (3-9); Neutrophils Absolute Manual 18.43 K/mm3 (1.7-7.2); Neutrophils Percent Manual 76 % (46-73); Platelet Estimate Adequate (Adequate); Poikilocytosis 1+ (NORMAL); Schistocytes None Seen (NORMAL); Total Cells Counted 100
--- NOTE | 2023-04-17 10:01 | WPDANESPN ---
Anes - Prog Note Post-Op Date/Time: 04/17/23 10:01 Cardiovascular status: normal Respiratory status: normal Airway patency: baseline Mental status: baseline Post-Op hydration status: normal Vital Signs: Last Vital Signs Temp 98.6 F 04/17/23 06:00 Pulse 81 04/17/23 06:00 Resp 16 04/17/23 06:00 BP 117/55 L 04/17/23 06:00 Pulse Ox 91 04/17/23 06:00 O2 Del Method Room Air 04/16/23 20:00 O2 Flow Rate 10 04/15/23 16:17 Pain Score (VAS): 5 I/O: Intake & Output 04/16/23 04/17/23 04/17/23 23:59 07:59 15:59 Intake Total 1999 1200 Balance 1999 1200 Laboratory Tests 04/17/23 07:39 04/17/23 07:39 04/16/23 04/17/23 06:38 07:39 WBC 19.2 H RBC 4.31 Hgb 12.4 Hct 39.5 MCV 91.6 MCH 28.8 MCHC 31.4 L RDW 14.7 H Plt Count 298 MPV 9.6 Immature Gran % (Auto) Not Reportable Neut % (Auto) Not Reportable Lymph % (Auto) Not Reportable [place] % (Auto) Not Reportable Eos % (Auto) Not Reportable Baso % (Auto) Not Reportable Lymph # (Auto) Not Reportable [place] # (Auto) Not Reportable Eos # (Auto) Not Reportable Baso # (Auto) Not Reportable Abs Immat Gran (auto) Not Reportable Absolute Neuts (auto) Not Reportable Absolute Nucleated RBC Not Reportable Total Counted 100 Neutrophils % (Manual) 76 H Band Neutrophils % 20 H Monocytes % (Manual) 4 Nucleated RBC % Not Reportable Abs Neuts (Manual) 18.43 H Abs Monocytes (Manual) 0.76 Platelet Estimate Adequate Poikilocytosis 1+ Christian Cells 2+ Schistocytes None seen Sodium 134 L Potassium 4.0 Chloride 102 Carbon Dioxide 25 Anion Gap 7 L BUN 8 Creatinine 0.50 L Estim Creat Clear Calc 93 Estimated GFR > 60 Glucose 95 Calcium 8.1 L Magnesium 1.9 Total Bilirubin 0.5 AST 36 ALT 56 H Alkaline Phosphatase 59 Total Protein 6.0 L Albumin 3.3 L Lipase 87340 H 4927 H Post-procedural complaints: none Patient Feedback: Patient satisfied with anesthetic care.
--- NOTE | 2023-04-17 10:32 | WPDGIPROGNO ---
Progress Note: A&P Assessment and Plan (1) Pancreatitis, acute: Code(s): K85.90 - Acute pancreatitis without necrosis or infection, unspecified Status: Acute Assessment and Plan: Patient admitted with acute pancreatitis. Had a small gallstone extracted with ERCP. She continues to have elevated lipase consistent with post ERCP pancreatitis. Lipase 21,000 yesterday is down to 5000 today. Hopefully this will continue to improve. Plan to continue NPO and pain control status at present. Allow ice chips or popsicles at present. Her abdomen is soft and flat which is a good sign. White count is currently elevated 19,000. Likely from inflammation no evidence for infection. Continue supportive care for now. Dr. Fabian returns in the morning. Subjective Date/time seen: 04/17/23 10:32 Interval history: Patient alert. Remains afebrile and anicteric. A little bit more comfortable today compared to yesterday. Pain medications ease her discomfort. She no longer requires antiemetic agents. Elevated lipase noted . Review of Systems Review of Systems: review of systems noncontributory. Exam Narrative: Physical exam reveals patient to be alert. Vital signs stable. HEENT exam is anicteric. Lungs are clear. Heart without murmur. Abdomen is soft flat. Mild epigastric tenderness. Patient has received pain injections recently. Objective Data Vital Signs Vital Signs: Vital Signs - 24 hr 04/16/23 14:00 04/16/23 21:37 04/16/23 20:00 Temperature 97.5 F L 97.6 F Pulse Rate 58 L 85 85 Respiratory Rate 14 20 20 Blood Pressure 128/51 L 104/65 Pulse Oximetry 95 93 93 Oxygen Delivery Room Air 04/17/23 06:00 Temperature 98.6 F Pulse Rate 81 Respiratory Rate 16 Blood Pressure 117/55 L Pulse Oximetry 91 Oxygen Delivery Intake/Output Intake/Output: Intake & Output 04/14/23 04/15/23 04/16/23 04/17/23 23:59 23:59 23:59 23:59 Intake Total 3381 708 4100 1200 Balance 9138 213 3644 1200 Meds/Results Medications: Active Medications Generic Name Dose Route Start Last Admin Trade Name Freq PRN Reason Stop Dose Admin Acetaminophen 1,000 mg 04/15/23 00:25 04/16/23 06:37 Acetaminophen 500 Mg Tablet PO 1,000 mg Q6H PRN Administration Mild Pain (1-3) or Fever Bisacodyl 10 mg 04/16/23 10:13 04/17/23 08:02 Bisacodyl 10 Mg Suppository RECTAL 10 mg QAM SUPRIYA Administration Hydromorphone HCl 1 mg 04/16/23 10:45 04/17/23 05:44 Hydromorphone Hcl Inj (*Crx) 1 Mg/Ml Syr IV PUSH 1 mg Q3H PRN Administration Pain Rated 7-10 Hydroxychloroquine Sulfate 200 mg 04/15/23 08:00 04/17/23 07:58 Hydroxychloroquine Sulfate 200 Mg Tablet PO 200 mg DAILY@0800 SUPRIYA Administration Lactated Ringer's 1,000 mls @ 150 mls/hr 04/16/23 10:40 04/17/23 07:57 Lr - Lactated Ringers Iv IV CONT 150 mls/hr .Q6H40M SUPRIYA Administration Naloxone HCl 0.1 mg 04/16/23 10:45 Naloxone Hcl 0.4 Mg/Ml Vial IV PUSH Q5MIN PRN respiratory depression Ondansetron HCl 4 mg 04/15/23 00:25 04/16/23 06:39 Ondansetron Inj 4 Mg/2 Ml Vial IV PUSH 4 mg Q6H PRN Administration Nausea And Vomiting Pantoprazole Sodium 40 mg 04/17/23 09:00 04/17/23 07:59 Pantoprazole Sodium Iv 40 Mg Vial IV PUSH 40 mg QAM SUPRIYA Administration Prochlorperazine Edisylate 10 mg 04/16/23 10:38 04/16/23 20:20 Prochlorperazine Edisylate 10 Mg/2 Ml Vial IV PUSH 10 mg Q6H PRN Administration Nausea And Vomiting Rosuvastatin Calcium 5 mg 04/15/23 00:35 04/16/23 20:20 Rosuvastatin 5 Mg Tablet PO 5 mg HS SUPRIYA Administration Radiology Results: ITS Impressions Chest X-Ray 04/14/23 17:42 IMPRESSION: No active cardiac pulmonary disease Status post cholecystectomy Abdomen/Pelvis CT 04/14/23 19:04 IMPRESSION: 1. Mild intra and extra hepatic biliary ductal dilation which is within normal limits post cholecystectomy but with sugges
[2023-04-17 14:00] VITALS: BP 116/55; PULSE 81; RESP 16; TEMP 36.9; O2SAT 90
--- NOTE | 2023-04-17 14:19 | PC.NURSE ---
patient in chair running 91-93% on room air. d/w Hollie Newell. order received for IS. Respiratory notified and they will provide IS for patient.
[2023-04-17] MEDS: ACETAMINOPHEN 500 MG TABLET 1000 MG PO (19:01)
[2023-04-17] MEDS: PROCHLORPERAZINE EDISYLATE 10 MG/2 ML VIAL IV PUSH (19:01)
[2023-04-17 20:00] VITALS: PULSE 81; RESP 16; O2SAT 90
[2023-04-17] MEDS: ROSUVASTATIN 5 MG TABLET PO (20:28)
[2023-04-17 22:00] VITALS: BP 104/60; PULSE 78; RESP 18; TEMP 36.8; O2SAT 91
[2023-04-18] MEDS: HYDROmorphone HCL INJ (*CRX) 1 MG/ML SYR IV PUSH ×3 (00:58→20:37)
[2023-04-18 05:57] VITALS: BP 119/63; PULSE 76; RESP 14; TEMP 36.2; O2SAT 90
--- NOTE | 2023-04-18 07:00 | WPDGIPROGNO ---
Progress Note: A&P Assessment and Plan (1) Pancreatitis, acute: Code(s): K85.90 - Acute pancreatitis without necrosis or infection, unspecified Status: Acute Assessment and Plan: Lipase jumped to over 20,000 following ERCP. Also she has clinical evidence of worsening pancreatitis with more pain and nausea. She did not get any sleep last night. The dose of Dilaudid she states is not helping. I see that she is getting 1 mg q.3 hours. I will increase that to 2 mg. (2) Common bile duct dilatation: Code(s): K83.8 - Other specified diseases of biliary tract Status: Acute Assessment and Plan: CT scan reveals dilated intra and extrahepatic ducts. This is not unusual for post cholecystectomy although there is also apparent filling defect in the distal common bile duct which would also explain her pancreatitis. ERCP did reveal common bile duct stones. Cannulation was a bit difficult initially with the feeling that there was stenosis but eventually several small black stones and sludge were removed. (3) Transaminitis: Code(s): R74.01 - Elevation of levels of liver transaminase levels Status: Acute Plan Will schedule for ERCP to be done today. I discussed with her the technique I sabino her a diagram. Showed her how stones conclude the pancreatic and bile duct. I discussed possible complications such as bleeding or perforation or the possible need for surgery to correct complication and also a risk of pancreatitis of about 3%. 04/18/2023 she did in fact develop worsening pancreatitis following ERCP. Will advance diet slowly. I told her that although this is not likely to occur again due to sphincterotomy, we will keep her on a low-fat diet for few weeks as well as on pancreatic enzyme supplements. Subjective Date/time seen: 04/18/23 07:00 the patient has had persistent pain and nausea aggravated by ERCP. Also marked increase in lipase although as of yesterday it is coming down. Today's levels are pending. She has had no Sleep. Pain medicine is not effective. It appears her dose was only 1 mg. Although she is nauseated, she is willing and eager to try some liquids. Exam Const: General: cooperative and healthy appearing Orientation/consciousness: patient oriented x3 HENMT: Head: normal to inspection Ears: hearing grossly normal bilaterally Mouth: Yes Normal oral and palatal mucosa present Eyes: General: appearance normal, both eyes and all related structures Neck: Neck: normal visual inspection Chest: Chest palpation & inspection: normal inspection of the chest Resp: Effort & Inspection: normal respiratory effort Auscultation: clear to auscultation bilaterally Cardio: Rate: regular rate Rhythm: regular rhythm GI: Inspection: normal to inspection Auscultation: normal bowel sounds Skin: General skin exam: normal color and no jaundice Neuro: General: patient oriented x3 Speech: normal speech Objective Data Vital Signs Vital Signs: Vital Signs - 24 hr 04/17/23 14:00 04/17/23 20:00 04/17/23 22:00 Temperature 36.9 C 36.8 C Pulse Rate 81 81 78 Respiratory Rate 16 16 18 Blood Pressure 116/55 L 104/60 Pulse Oximetry 90 90 91 Oxygen Delivery Room Air 04/18/23 05:57 Temperature 36.2 C L Pulse Rate 76 Respiratory Rate 14 Blood Pressure 119/63 Pulse Oximetry 90 Oxygen Delivery Intake/Output Intake/Output: Intake & Output 04/15/23 04/16/23 04/17/23 04/18/23 23:59 23:59 23:59 23:59 Intake Total 878 2620 3200 Balance 878 2620 3200 Meds/Results Medications: Active Medications Generic Name Dose Route Start Last Admin Trade Name Freq PRN Reason Stop Dose Admin Acetaminophen 1,000 mg 04/15/23 00:25 04/17/23 19:01 Acetaminophen 500 Mg Tablet PO 1,000 mg Q6H PRN Administration Mild Pain (1-3) or Fever Bisacodyl 10 mg 04/16/23 10:13 04/17/23 08:02 Bisacodyl 10 Mg Suppository RECTAL 10 mg [facility]
[2023-04-18 07:56] LABS: Hematocrit 36.1 % (37.0-47.0); Hemoglobin 11.6 g/dL (12.0-15.0); Mean Corpuscular HGB Conc 32.1 g/dl (32-36); Mean Corpuscular Hemoglobin 29.6 pg (26-34); Mean Corpuscular Volume 92.1 fl (80-100); Mean Platelet Volume 9.5 fl (7.4-10.4); Platelet Count Result 259 k/mm3 (150-375); Red Blood Count 3.92 M/mm3 (4.2-5.4); Red Cell Distribution Width 14.9 % (11.5-14.5); White Blood Count 18.6 K/mm3 (4.5-10.0)
[2023-04-18 08:00] LABS: Potassium 3.4 mmol/L (3.4-5.0)
[2023-04-18 08:04] LABS: Alanine Aminotransferase 40 U/L (6-35); Albumin Level 3.1 g/dL (3.5-5.1); Alkaline Phosphatase 65 U/L (38-126); Anion Gap 7 mmol/L (8-16); Aspartate Amino Transferase 33 U/L (14-36); Bilirubin,Total 0.9 mg/dL (0.2-1.3); Blood Urea Nitrogen 7 mg/dL (7-17); Calcium 7.9 mg/dL (8.4-10.2); Carbon Dioxide 26 mmol/L (22-30); Chloride 98 mmol/L (98-107); Estimated CRCL calculation 93 ml/min; Estimated Glomerular Filt Rate > 60; Glucose 81 mg/dL (65-110); Lipase 643 U/L (23-300); Sodium 131 mmol/L (137-145)
[2023-04-18] MEDS: HYDROmorphone HCL INJ (*CRX) 2 MG/ML VIAL IV PUSH (08:30)
[2023-04-18] MEDS: PANTOPRAZOLE SODIUM IV 40 MG VIAL IV PUSH (08:33)
[2023-04-18] MEDS: HYDROXYCHLOROQUINE SULFATE 200 MG TABLET PO (08:34)
[2023-04-18] MEDS: PROCHLORPERAZINE EDISYLATE 10 MG/2 ML VIAL IV PUSH (08:34)
[2023-04-18] MEDS: BISACODYL 10 MG SUPPOSITORY RECTAL (08:35)
--- NOTE | 2023-04-18 09:35 | PM.IMPN ---
Progress Note: A&P Assessment and Plan (1) Pancreatitis, acute: Code(s): K85.90 - Acute pancreatitis without necrosis or infection, unspecified Status: Acute Assessment and Plan: Admit to regular medical floor NPO IV fluids GI consult Supportive Continue to monitor 04/15: Plan for ERCP today. Checked lipid panel, normal findings. Pain is improved. Discussed possible etiologies, reason for GI referral. Patient verbalizes understanding. Will await GI recs and hopefully resume a bland diet and advance as tolerated. 04/16: ERCP yesterday with stone extraction. Now with increasing pain. Lipase 21,6[address]. Will place back on NPO with ice chips. IVF LR at 150 ml per hour. Her morphine and zofran are no longer helping with her symptoms. Dilaudid and compazine added. 04/17: Continue with supportive care of IVF, NPO, and pain meds. Can trial clears when she is feeling ready. 04/18: Had ordered clear liquid diet this morning but the patient is saying her pain is too severe. Will need to change back to NPO if she still requires IV pain meds. (2) T2DM (type 2 diabetes mellitus): Code(s): E11.9 - Type 2 diabetes mellitus without complications Status: Acute Assessment and Plan: Holding Metformin ISS as needed 04/15: Stable glucose on labs. 04/16: Stable. 04/18: stable Plan Feeding: Clear liquids Analgesia:? Tylenol, dilaudid 0.5-1 mg q 3hours as needed for pain Thromboembolic prophylaxis:? Lovenox Ulcer prophylaxis:? Protonix. Glycemic control: Monitor glucose on labs for now. Bowel regimen: Suppository per pt request for gas. Lines:? PIV Antibiotics:? None Disposition: Home when clinically improved. Subjective Date/time seen: 04/18/23 09:35 Interval history: HPI obtained from the chart, This is a 67-year-old female with past medical history significant for type diabetes mellitus, status post remote cholecystectomy 20+ years ago.? Patient presents to the emergency room due to right upper quadrant pain with radiation to the epigastrium 7/10 in intensity on a few hours of duration patient had been able to have her meals today she denies any nausea, vomiting, chills, rigors, diarrhea, constipation, dyspepsia, heartburn, no cough, no sputum production.? Patient has been in her usual state of health up until this point.? Preliminary workup was significant for a lipase? over 1000. 04/15: Patient has less abd. pain this am, more in the RUQ and less midline compared to yesterday.? She has been npo this morning in prep for an ERCP.? She has not had similar symptoms in the recent past. She notes recently starting metformin.? 04/16: Patient says she does not feel well today. Reports the same epigastric, RUQ pain with nausea present. She trialed a clear liquid diet this morning but was unable to tolerate much due to pain. She also feels bloated. 04/17: Doing better today. Her pain is slowly improving and she is requiring less pain medications. She is still NPO. I offered to let her trial some clears tonight but she wants to wait until tomorrow. She is passing gas and has had two small bowel movements. 04/18: Patient's daughter is here today and would like urgent transfer for her mother as she feels she is not being medically managed to her liking. I discussed the expectation of worsening pancreatitis with ERCP which the patient has suffered but her labs are down trending as desired. The patient had mentioned to GI that she had severe pain overnight but she only took 1 dose of Dilaudid per the MAR. Counseled on asking for pain medication when it occurs as it will not be scheduled. She was given 2 mg of Dilaudid this morning and then required oxygen. Decreased dose back to 1 mg. She likely also has atelectasis from lack of deep breathing. She has an IS at bedside. I reviewed with the patient's daughter that [facility] is unlikely to accept her as a lateral transfer. I will call regardless per their request. I had ordered
[2023-04-18 09:49] LABS: Band Neutrophils Percent 13 % (0-6); Lymphocytes Absolute Manual 0.55 K/mm3 (1.1-4.5); Lymphocytes Percent Manual 3 % (18-44); Monocytes Absolute Manual 1.11 K/mm3 (0.1-0.90); Monocytes Percent Manual 6 % (3-9); Neutrophils Absolute Manual 16.92 K/mm3 (1.7-7.2); Neutrophils Percent Manual 78 % (46-73); Platelet Estimate Adequate (Adequate); Total Cells Counted 100
[2023-04-18 09:50] LABS: Anisocytosis 1+ (NORMAL); Burr Cells 1+ (NORMAL); Poikilocytosis 1+ (NORMAL); Schistocytes None Seen (NORMAL)
[2023-04-18] MEDS: LACTATED RINGERS 1,000 ML 150 ML IV CONT ×2 (10:00→23:07)
[2023-04-18 10:58] LABS: Procalcitonin 0.2 ng/mL
[2023-04-18] MEDS: HYDROcodone/acetaminophen (*CRX) 5-325 MG TABLET 1 TAB PO ×2 (13:08→23:39)
[2023-04-18 14:00] VITALS: BP 138/58; PULSE 78; RESP 18; TEMP 36.9; O2SAT 100
[2023-04-18 20:00] VITALS: PULSE 78; RESP 18; O2SAT 100
[2023-04-18] MEDS: ROSUVASTATIN 5 MG TABLET PO (20:36)
[2023-04-18] MEDS: DOCUSATE SODIUM 100 MG CAPSULE PO (20:36)
[2023-04-18 22:00] VITALS: BP 139/66; PULSE 83; RESP 18; TEMP 36.6; O2SAT 93
[2023-04-19] MEDS: HYDROcodone/acetaminophen (*CRX) 5-325 MG TABLET 1 TAB PO (03:30)
[2023-04-19] MEDS: LACTATED RINGERS 1,000 ML 150 ML IV CONT (05:40)
[2023-04-19 06:00] VITALS: BP 147/66; PULSE 70; RESP 12; TEMP 35.6; O2SAT 97
--- NOTE | 2023-04-19 07:02 | WPDGIPROGNO ---
Progress Note: A&P Assessment and Plan (1) Pancreatitis, acute: Code(s): K85.90 - Acute pancreatitis without necrosis or infection, unspecified Status: Acute Assessment and Plan: Lipase jumped to over 20,000 following ERCP. Also she has clinical evidence of worsening pancreatitis with more pain and nausea. She did not get any sleep last night. The dose of Dilaudid she states is not helping. I see that she is getting 1 mg q.3 hours. I will increase that to 2 mg. (2) Common bile duct dilatation: Code(s): K83.8 - Other specified diseases of biliary tract Status: Acute Assessment and Plan: CT scan reveals dilated intra and extrahepatic ducts. This is not unusual for post cholecystectomy although there is also apparent filling defect in the distal common bile duct which would also explain her pancreatitis. ERCP did reveal common bile duct stones. Cannulation was a bit difficult initially with the feeling that there was stenosis but eventually several small black stones and sludge were removed. (3) Transaminitis: Code(s): R74.01 - Elevation of levels of liver transaminase levels Status: Acute Assessment and Plan: Transaminases which were elevated had come down to normal until this morning. Now they have suddenly increased. Bilirubin is up to 2.1. AST is 576 ALT 332 and alkaline phosphatase now up to 407. She may have a residual stone in the common bile duct. More likely this is secondary to edema of the head of the pancreas. Plan Will schedule for ERCP to be done today. I discussed with her the technique I sabino her a diagram. Showed her how stones conclude the pancreatic and bile duct. I discussed possible complications such as bleeding or perforation or the possible need for surgery to correct complication and also a risk of pancreatitis of about 3%. 04/18/2023 she did in fact develop worsening pancreatitis following ERCP. Will advance diet slowly. I told her that although this is not likely to occur again due to sphincterotomy, we will keep her on a low-fat diet for few weeks as well as on pancreatic enzyme supplements. Due to persistent elevation of white blood count and jump in LFTs, will begin antibiotics. Case was discussed with Hollie Walters, hospitalist. CT scan ordered for this morning. TPN to be started today after central line placement Time Spent With Patient Time with patient: 25 - 35 minutes Subjective Date/time seen: 04/19/23 07:02 she still has not been sleeping well, however she is having significantly less pain which she attributes to Colace. She feels that dilaudid did not help relieve pain at all. Hydrocodone tablets are helpful. She is passing gas and feels that if she could have a bowel movement she would feel better. MiraLax had been ordered but she does not believe that she will be able to drink the 6 or 8 oz of liquid required. I discussed nutrition with her. She has had nothing to eat for 6 days. She is agreeable to starting TPN. Exam Const: General: cooperative and healthy appearing Orientation/consciousness: patient oriented x3 HENMT: Head: normal to inspection Ears: hearing grossly normal bilaterally Mouth: Yes Normal oral and palatal mucosa present Eyes: General: appearance normal, both eyes and all related structures Neck: Neck: normal visual inspection Chest: Chest palpation & inspection: normal inspection of the chest Resp: Effort & Inspection: normal respiratory effort Auscultation: clear to auscultation bilaterally Cardio: Rate: regular rate Rhythm: regular rhythm GI: Inspection: normal to inspection GI Palp: Yes Soft to palpation and Yes Tenderness to palpation present (GI) (Generalized but less than yesterday) Auscultation: normal bowel sounds Skin: General skin exam: normal color and no jaundice Neuro: General: patient oriented x3 Speech: normal speech Objective Data Vital Signs Vital Signs: Vital S
[2023-04-19 07:39] LABS: Basophils Percent Auto 0.2 % (0.2-1.2); Eosinophils Absolute Auto 0.1 K/mm3 (0-0.3); Eosinophils Percent Auto 0.3 % (0-4.4); Hematocrit 34.2 % (37.0-47.0); Immature Granulocyte Absolute 0.12 K/mm3 (0.00-0.031); Immature Granulocyte Percent A 0.7 % (0-0.5); Lymphocytes Absolute Auto 0.83 K/mm3 (0.9-3.2); Lymphocytes Percent Auto 4.5 % (18.3-44.2); Mean Corpuscular HGB Conc 32.2 g/dl (32-36); Mean Corpuscular Hemoglobin 28.9 pg (26-34); Mean Platelet Volume 9.6 fl (7.4-10.4); Monocytes Absolute Auto 1.5 K/mm3 (0.1-0.6); Monocytes Percent Auto 8.3 % (2.6-8.5); Neutrophils Absolute Auto 15.8 K/mm3 (1.3-6.7); Platelet Count Result 290 k/mm3 (150-375); Red Cell Distribution Width 14.6 % (11.5-14.5); White Blood Count 18.4 K/mm3 (4.5-10.0)
[2023-04-19 07:56] LABS: Alanine Aminotransferase 332 U/L (6-35); Albumin Level 3.3 g/dL (3.5-5.1); Alkaline Phosphatase 407 U/L (38-126); Anion Gap 10 mmol/L (8-16); Aspartate Amino Transferase 576 U/L (14-36); Bilirubin,Total 2.1 mg/dL (0.2-1.3); Blood Urea Nitrogen 6 mg/dL (7-17); Calcium 8.3 mg/dL (8.4-10.2); Carbon Dioxide 27 mmol/L (22-30); Chloride 96 mmol/L (98-107); Estimated CRCL calculation 93 ml/min; Estimated Glomerular Filt Rate > 60; Glucose 80 mg/dL (65-110); Magnesium 2.1 mg/dL (1.6-2.3); Potassium 3.5 mmol/L (3.4-5.0); Sodium 133 mmol/L (137-145)
[2023-04-19 08:03] LABS: Transferrin 139 mg/dL (206-381)
--- NOTE | 2023-04-19 08:20 | PM.IMPN ---
Progress Note: A&P Assessment and Plan (1) Pancreatitis, acute: Code(s): K85.90 - Acute pancreatitis without necrosis or infection, unspecified Status: Acute Assessment and Plan: Admit to regular medical floor NPO IV fluids GI consult Supportive Continue to monitor 04/15: Plan for ERCP today. Checked lipid panel, normal findings. Pain is improved. Discussed possible etiologies, reason for GI referral. Patient verbalizes understanding. Will await GI recs and hopefully resume a bland diet and advance as tolerated. 04/16: ERCP yesterday with stone extraction. Now with increasing pain. Lipase 21,6[address]. Will place back on NPO with ice chips. IVF LR at 150 ml per hour. Her morphine and zofran are no longer helping with her symptoms. Dilaudid and compazine added. 04/17: Continue with supportive care of IVF, NPO, and pain meds. Can trial clears when she is feeling ready. 04/18: Had ordered clear liquid diet this morning but the patient is saying her pain is too severe. Will need to change back to NPO if she still requires IV pain meds. 04/19:LFTs have increased significantly today. T bili 2.1, AST 576, ALT 332. WBC continues to remain elevated at 18,000. Still afebrile and blood pressures are stable. GI ordered CT abdomen which shows acute pancreatitis, now with possible choledocholithiasis, and new stones in the gallbladder fossa. Starting Zosyn as well. (2) Nutrition deficiency due to insufficient food: Code(s): E63.9 - Nutritional deficiency, unspecified; T73.0XXA - Starvation, initial encounter Status: Acute Assessment and Plan: Unable to have any substantial intake for the last 6 days. consult nutrition PICC line ordered TPN ordered Plan Feeding: NPO, TPN Analgesia:? Tylenol, Dilaudid 0.5-1 mg q 3hours as needed for pain, norco Thromboembolic prophylaxis:? Lovenox Ulcer prophylaxis:? Protonix. Glycemic control: Monitor glucose on labs for now. Bowel regimen: Suppository per pt request for gas. Lines:? PIV Antibiotics:? None Disposition: Accepted for transfer to [facility]. Subjective Date/time seen: 04/19/23 08:20 Interval history: HPI obtained from the chart, This is a 67-year-old female with past medical history significant for Sjogren disease and status post remote cholecystectomy 20+ years ago.? Patient presents to the emergency room due to right upper quadrant pain with radiation to the epigastrium 10 in intensity on a few hours of duration patient had been able to have her meals today she denies any nausea, vomiting, chills, rigors, diarrhea, constipation, dyspepsia, heartburn, no cough, no sputum production.? Patient has been in her usual state of health up until this point.? Preliminary workup was significant for a lipase? over 1000. 04/15: Patient has less abd. pain this am, more in the RUQ and less midline compared to yesterday.? She has been npo this morning in prep for an ERCP.? She has not had similar symptoms in the recent past. She notes recently starting metformin.? 04/16: Patient says she does not feel well today. Reports the same epigastric, RUQ pain with nausea present. She trialed a clear liquid diet this morning but was unable to tolerate much due to pain. She also feels bloated. 04/17: Doing better today. Her pain is slowly improving and she is requiring less pain medications. She is still NPO. I offered to let her trial some clears tonight but she wants to wait until tomorrow. She is passing gas and has had two small bowel movements. 04/18: Patient's daughter is here today and would like urgent transfer for her mother as she feels she is not being medically managed to her liking. I discussed the expectation of worsening pancreatitis with ERCP which the patient has suffered but her labs are down trending as desired. The patient had mentioned to GI that she had severe pain overnight but she only took 1 dose of Dilaudid per the MAR. Counseled on asking for pain medication wh
[2023-04-19 08:43] LABS: Amylase 148 U/L (30-110); Lipase 127 U/L (23-300)
[2023-04-19] MEDS: PANTOPRAZOLE SODIUM IV 40 MG VIAL IV PUSH (08:56)
[2023-04-19] MEDS: HYDROXYCHLOROQUINE SULFATE 200 MG TABLET PO (08:56)
[2023-04-19] MEDS: DOCUSATE SODIUM 100 MG CAPSULE PO ×2 (08:56→20:15)
[2023-04-19] MEDS: LIDOCAINE HCL 1% PF INJ 5 ML VIAL INFILTRATE (10:45)
[2023-04-19] MEDS: ACETAMINOPHEN 500 MG TABLET 1000 MG PO (11:44)
[2023-04-19] MEDS: PIPERACILLN/TAZ 3.375GM/NS50ML 3.375 GM/50 ML BAG IVPB ×2 (11:45→17:39)
[2023-04-19] MEDS: BISACODYL 10 MG SUPPOSITORY RECTAL (11:45)
[2023-04-19 12:55] VITALS: BMI 29.1
[2023-04-19 12:57] LABS: Glucose Point of Care 86 mg/dl (65-105)
[2023-04-19] MEDS: HYDROmorphone HCL INJ (*CRX) 1 MG/ML SYR IV PUSH (13:06)
[2023-04-19 14:00] VITALS: BP 127/75; PULSE 74; RESP 16; TEMP 36.8; O2SAT 99
[2023-04-19] MEDS: CENTRAL LINE FLUSH 10 ML IV PUSH ×3 (14:20→20:16)
[2023-04-19] MEDS: MORPHINE SULFATE (*CRX) 4 MG/ML INJ IV PUSH ×2 (16:00→20:15)
[2023-04-19 18:35] LABS: Glucose Point of Care 111 mg/dl (65-105)
[2023-04-19] MEDS: ROSUVASTATIN 5 MG TABLET PO (20:15)
[2023-04-19] MEDS: ONDANSETRON INJ 4 MG/2 ML VIAL IV PUSH (20:16)
[2023-04-19 21:13] VITALS: BP 118/66; PULSE 95; RESP 18; TEMP 36.1; O2SAT 92
--- NOTE | 2023-04-19 22:18 | PC.NURSE ---
Pt left by EMS from room 325, to [facility] room 4303. Report was called by Laura Figueroa, charge nurse this shift. Pt left with PICC line intact and locked. P's daughter aware of move and pt alert and orientated.
--- NOTE | 2023-04-27 17:36 | PM.TDS ---
Transfer Discharge Sum: Prov Provider Date of admission: 04/14/23 22:27 Primary care physician: UNKNOWN,DOCTOR Admitting clinician: Eliazar Graves MD Consults: 04/14/23 20:33 Consult to Physician Routine Comment: GI already seeing patient Consulting Provider: Ricky Fabian Reason for consultation: Pancreatitis, s/p choley 20+ years ago, billiay duct dilation, MRCP Has provider been notified: Yes 04/19/23 06:37 Consult to Dietitian Routine Reason for Consult:: TPN DS: Admitting Diagnosis Discharge Date 04/19/23 Admitting Diagnosis abdominal pain DS: Discharge Diagnosis Discharge Diagnosis (1) Pancreatitis, acute: Code(s): K85.90 - Acute pancreatitis without necrosis or infection, unspecified Status: Acute Assessment and Plan: Admit to regular medical floor NPO IV fluids GI consult Supportive Continue to monitor 04/15: Plan for ERCP today. Checked lipid panel, normal findings. Pain is improved. Discussed possible etiologies, reason for GI referral. Patient verbalizes understanding. Will await GI recs and hopefully resume a bland diet and advance as tolerated. 04/16: ERCP yesterday with stone extraction. Now with increasing pain. Lipase 21,6[address]. Will place back on NPO with ice chips. IVF LR at 150 ml per hour. Her morphine and zofran are no longer helping with her symptoms. Dilaudid and compazine added. 04/17: Continue with supportive care of IVF, NPO, and pain meds. Can trial clears when she is feeling ready. 04/18: Had ordered clear liquid diet this morning but the patient is saying her pain is too severe. Will need to change back to NPO if she still requires IV pain meds. 04/19:LFTs have increased significantly today. T bili 2.1, AST 576, ALT 332. WBC continues to remain elevated at 18,000. Still afebrile and blood pressures are stable. GI ordered CT abdomen which shows acute pancreatitis, now with possible choledocholithiasis, and new stones in the gallbladder fossa. Starting Zosyn as well. (2) Nutrition deficiency due to insufficient food: Code(s): E63.9 - Nutritional deficiency, unspecified; T73.0XXA - Starvation, initial encounter Status: Acute Assessment and Plan: Unable to have any substantial intake for the last 6 days. consult nutrition PICC line ordered TPN ordered Plan Feeding: NPO, TPN Analgesia:? Tylenol, Dilaudid 0.5-1 mg q 3hours as needed for pain, norco Thromboembolic prophylaxis:? Lovenox Ulcer prophylaxis:? Protonix. Glycemic control: Monitor glucose on labs for now. Bowel regimen: Suppository per pt request for gas. Lines:? PIV Antibiotics:? None Disposition: Accepted for transfer to [facility]. Transfer Discharge Sum: Med Medications Active and Home Medications: Home Medications ezetimibe 10 mg tablet 10 mg PO 1200 04/14/23 [History Confirmed 04/14/23] hydroxychloroquine 200 mg tablet 200 mg PO DAILY 04/14/23 [History Confirmed 04/14/23] metformin 500 mg tablet 500 mg PO BID 04/14/23 [History Confirmed 04/14/23] rosuvastatin 5 mg tablet 5 mg PO HS 04/14/23 [History Confirmed 04/14/23] Transfer Discharge Sum: Hosp Hospital Course Hospital course: HPI obtained from the chart, This is a 67-year-old female with past medical history significant for Sjogren disease and status post remote cholecystectomy 20+ years ago.? Patient presents to the emergency room due to right upper quadrant pain with radiation to the epigastrium 7/10 in intensity on a few hours of duration patient had been able to have her meals today she denies any nausea, vomiting, chills, rigors, diarrhea, constipation, dyspepsia, heartburn, no cough, no sputum production.? Patient has been in her usual state of health up until this point.? Preliminary workup was significant for a lipase? over 1000. 04/15: Patient has less abd. pain this am, more in the RUQ and less midline compared to yesterday.? She has been npo this morning in prep for an ERCP.? She
== END 2023-04-19 22:06 | disposition short-term general hospital (02) | DRG 439 ==
LOC: ANHED 20:40 → ANH3MEDSUR 22:42
PROVIDERS: Internal Medicine Gastroenterology; Nurse Practitioner Family; Student in an Organized Health Care Education/Training Program; Admitting Provider Internal Medicine; Emergency Provider Emergency Medicine; Visit Provider Nurse Practitioner Acute Care
PROC: 0FC98ZZ Extirpation of Matter from Common Bile Duct, Via Natural or Artificial Opening Endoscopic (ICD-10-PCS; CPT 43260; principal; 2023-04-15 15:30)
DX: K85.90 Acute pancreatitis without necrosis or infection, unspecified (principal); K80.51 Calculus of bile duct without cholangitis or cholecystitis with obstruction; M35.00 Sjogren syndrome, unspecified; E11.9 Type 2 diabetes mellitus without complications; E63.9 Nutritional deficiency, unspecified; R74.01 Elevation of levels of liver transaminase levels; Z90.49 Acquired absence of other specified parts of digestive tract; Z79.84 Long term (current) use of oral hypoglycemic drugs
CPT/HCPCS: 36415; 36569; 71046; 74177; 74329; 80053; 80061; 82150; 82948; 83615; 83690; 83735; 84145; 84466; 84484; 85025; 85027; 85610; 85730; 93005; 96361; 96374; 96375; 99285; A9270; C9113; J0330; J0780; J1100; J1170; J2270; J2405; J2543; J2704; J7030; J7120; Q9966; Q9967